=== PATIENT | male | born 1970 | race African-American/Black ===

== ENCOUNTER 2017-11-10 16:34 | Inpatient (IN) | payer OTHER ==
[2017-11-10 18:39] VITALS: BMI 34.0
--- NOTE | 2017-11-10 21:22 | HP ---
CIWA Score - CIWA Score Nausea/Vomitin-No Nausea/No Vomiting Muscle Tremors: 4-Moderate,w/Arms Extend Anxiety: 4-Mod. Anxious/Guarded Agitation: 2 Paroxysmal Sweats: 4-Forehead w/Sweat Beads Orientation: 0-Oriented Tacttile Disturbances: 0-None Auditory Disturbances: 0-None Visual Disturbances: 1-Very Mild Sensitivity Headache: 0-None Present CIWA-Ar Total Score: 15 Admission ROS BHS - HPI Chief Complaint: " I need help" alcohol withdrawal symptoms Allergies/Adverse Reactions: Allergies Allergy/AdvReac Type Severity Reaction Status Date / Time No Known Allergies Allergy Verified 11/10/17 21:32 History of Present Illness: 47 yo male with of alcohol dependence is here seeking detox. Reports was seen at [facility] emergency department one week ago for anxiety attack. PMHX: GERD, chronic back pain, Prosthesis left eye, HTN, depression, schizophrenia. Denies suicidal / homicidal ideation. Denies hx of suicide attempts. Denies hx seizure or blackouts. Reports longest period of 90 days. Last detox [facility] 2016. Exam Limitations: No Limitations - Ebola screening Have you been sick,other than usual withdrawal symptoms: No - Review of Systems Constitutional: Chills, Changes in sleep EENT: reports: Other (wears glasses) Respiratory: reports: No Symptoms reported Cardiac: reports: No Symptoms Reported GI: reports: Indigestion : reports: No Symptoms Reported Musculoskeletal: reports: Back Pain (chronic back pain from sx 2013) Integumentary: reports: No Symptoms Reported Neuro: reports: Unsteady Gait (uses cane) Endocrine: reports: Increased Thirst Hematology: reports: No Symptoms Reported Psychiatric: reports: Orientated x3, Anxious Other Systems: Reviewed and Negative Patient History - Patient Medical History Hx Anemia: No Hx Asthma: No Hx Chronic Obstructive Pulmonary Disease (COPD): No Hx Cancer: No Hx Cardiac Disorders: No Hx Congestive Heart Failure: No Hx Hypertension: Yes (on meds) Hx Hypercholesterolemia: No Hx Pacemaker: No HX Cerebrovascular Accident: No Hx Seizures: No Hx Dementia: No Hx Diabetes: No Hx Gastrointestinal Disorders: Yes Hx Liver Disease: No Hx Genitourinary Disorders: No Hx Sexually Transmitted Disorders: No Hx Renal Disease (ESRD): No Hx Thyroid Disease: No Hx Human Immunodeficiency Virus (HIV): No (last tested Mar 2017) Hx Hepatitis C: No Hx Depression: Yes Hx Suicide Attempt: No Hx Bipolar Disorder: No Hx Schizophrenia: Yes - Patient Surgical History Past Surgical History: Yes Hx Neurologic Surgery: No Hx Cataract Extraction: No Hx Cardiac Surgery: No Hx Lung Surgery: No Hx Breast Surgery: No Hx Breast Biopsy: No Hx Abdominal Surgery: No Hx Appendectomy: No Hx Cholecystectomy: No Hx Section: No Hx Orthopedic Surgery: Yes (back 2013) Hx Hysterectomy: No Anesthesia Reaction: No - PPD History Previous Implant?: No Documented Results: Negative w/o proof Implanted On Prior R Admission?: No PPD to be Administered?: Yes - Smoking Cessation Smoking history: Never smoked Hx Chewing Tobacco Use: No Initiated information on smoking cessation: No - Substance & Tx. History Hx Alcohol Use: Yes Hx Substance Use: Yes Substance Use Type: Alcohol Hx Substance Use Treatment: Yes (Last detox 2016.) - Substances Abused Alcohol Route: Oral Frequency: Daily Amount used: 1 pint vodka + 1 x 40z beer Age of first use: 22 Date of Last Use: 11/10/17 Family Disease History - Family Disease History Family History: Denies Admission Physical Exam [facility] - Vital Signs Vital Signs: Vital Signs - 24 hr 11/10/17 18:26 Temperature 97.4 F L Pulse Rate 86 Respiratory 20 Rate Blood Pressure 157/92 - Physical General Appearance: Yes: Mild Distress, Alcohol on Breath, Obese, Tremorous ( left hand), Sweating, Anxious HEENTM: Yes: Hearing grossly Normal, Normocephalic, Normal Voice, [place], Pharynx Normal, Tm's normal, Other (+ left eye prosthesis) Respiratory: Yes: Chest Non-Tender, Lungs Clear, Normal Breath Sounds, No Respiratory Distress, No Accessory Muscle Use Neck: Yes: Within Normal Limits Breast: Yes: Breast Exam Deferred Cardiology: Yes: Regular Rhythm, Regular Rate Abdominal: Yes: Normal Bowel Sounds, Non Tender, Soft, Protuberent Genitourinary: Yes: Within Normal Limits Back: Yes: Normal Inspection Musculoskeletal: Yes: full range of Motion, Gait Steady, Back pain, Other (cane for ambulation) Extremities: Yes: Normal Capillary Refill, Normal Inspection, Normal Range of Motion, Non-Tender Neurological: Yes: asset protection agent II-XII NML intact, Fully Oriented, Alert, Motor Strength 5/5, Other (flat affect) Integumentary: Yes: Normal Color, Warm, Diaphoresis Lymphatic: Yes: Within Normal Limits - Diagnostic (1) Hypertension Current Visit: Yes Status: Chronic Qualifiers: Hypertension type: essential hypertension Qualified Code(s): I10 - Essential (primary) hypertension (2) Alcohol dependence with withdrawal Current Visit: Yes Status: Acute Qualifiers: Complication of substance-induced condition: uncomplicated Qualified Code(s ): F10.230 - Alcohol dependence with withdrawal, uncomplicated (3) Use of cane as ambulatory aid Current Visit: Yes Status: Acute (4) Psychiatric disorder Current Visit: Yes Status: Suspected (5) Obese Current Visit: Yes Status: Chronic Qualifiers: Obesity type: unspecified obesity type Obesity classification: adult class 1 (BMI 30 - 34.9) Body mass index: BMI 34.0-34.9 (6) GERD (gastroesophageal reflux disease) Current Visit: Yes Status: Chronic Qualifiers: Esophagitis presence: without esophagitis Qualified Code(s): K21.9 - Gastro -esophageal reflux disease without esophagitis Cleared for Admission BHS - Detox or Rehab [facility] Level of Care: Medically Managed Detox Regimen/Protocol: Librium [facility] Breath Alcohol Content Breath Alcohol Content: 0.092 Urine Drug Screen - Results Drug Screen Negative: No Urine Drug Screen Results: BZO-Benzodiazepines, TCA-Tricyclic Antidepress
[2017-11-10] MEDS ORDERED: MENTHOL/PHENOL 1 EACH UD MM PRN (21:35)
[2017-11-10] MEDS ORDERED: chlordiazePOXIDE HCL 25 MG CAPSULE PO ONE (21:35)
[2017-11-10] MEDS ORDERED: guaiFENesin/D-METHORPHAN HB 10 ML UNIT-DOSE CUPS PO PRN (21:35)
[2017-11-10] MEDS ORDERED: P-EPHED 60MG/TRIPROLIDI 2.5MG TABLET PO PRN (21:35)
[2017-11-10] MEDS ORDERED: MAG HYDROX/AL HYDROX/SIMETH 30 ML UNIT-DOSE CUP PO PRN (21:35)
[2017-11-10] MEDS ORDERED: MAGNESIUM HYDROX 2400MG/30ML ORAL SUSPENSION 30 ML CUP PO PRN (21:35)
[2017-11-10] MEDS ORDERED: chlordiazePOXIDE HCL 25 MG CAPSULE PO PRN (21:35)
[2017-11-10] MEDS ORDERED: IBUPROFEN 400 MG TABLET (FP) PO PRN (21:35)
[2017-11-10] MEDS ORDERED: LOPERAMIDE HCL 2 MG CAPSULE PO PRN (21:35)
[2017-11-10] MEDS ORDERED: ACETAMINOPHEN 325 MG TABLET (FP) PO PRN (21:35)
[2017-11-10] MEDS ORDERED: MAGNESIUM CITRATE 300 ML BOTTLE PO PRN (21:35)
[2017-11-10] MEDS ORDERED: MELATONIN 5 MG TABLETS PO PRN (22:00)
[2017-11-10] MEDS: chlordiazePOXIDE HCL 25 MG CAPSULE PO SCH (23:09)
[2017-11-10] MEDS: THIAMINE HCL 100 MG TABLET (FP) PO SCH (23:10)
[2017-11-11] MEDS: chlordiazePOXIDE HCL 25 MG CAPSULE PO SCH ×4 (05:28→22:18)
[2017-11-11] MEDS: PRENATAL VITAMINS W/ FOLIC ACID TABLET (FP) PO SCH (10:36)
[2017-11-11] MEDS: HYDROCHLOROTHIAZIDE 25 MG TABLET (FP) PO SCH (10:36)
[2017-11-11 10:37] LABS: HEMATOCRIT 41.5 % (35.4-49); HEMOGLOBIN 14.3 GM/dL (11.7-16.9); MCH 31.4 pg (25.7-33.7); MCHC 34.5 g/dl (32.0-35.9); MEAN CELL VOLUME 91.1 fl (80-96); MEAN PLT VOLUME 7.9 fl (7.5-11.1); PLATELET COUNT 231 K/MM3 (134-434); RBC 4.55 M/mm3 (4.00-5.60); RDW 14.1 % (11.9-15.9); WHITE BLOOD COUNT 5.6 K/mm3 (4.0-10.0)
[2017-11-11 10:44] LABS: ALBUMIN 3.6 g/dl (3.4-5.0); CHLORIDE 104 mmol/L (98-107); POTASSIUM 4.2 mmol/L (3.5-5.1); SODIUM 142 mmol/L (136-145)
[2017-11-11 10:49] LABS: ALK PHOS 87 U/L (45-117); ANION GAP 8 (8-16); BILIRUBIN,TOTAL 0.3 mg/dL (0.2-1.0); BLOOD UREA NITROGEN 15 mg/dL (7-18); CO2 30 mmol/L (21-32); CREATININE 1.1 mg/dL (0.7-1.3); GLUCOSE,RANDOM 88 mg/dL (74-106); SGOT/AST 25 U/L (15-37); SGPT/ALT 34 U/L (12-78); TOT PROT 6.7 g/dl (6.4-8.2)
--- NOTE | 2017-11-11 11:30 | PN ---
S CIWA - CIWA Score Nausea/Vomitin-No Nausea/No Vomiting Muscle Tremors: 4-Moderate,w/Arms Extend Anxiety: 5 Agitation: 4-Moderately Restless Paroxysmal Sweats: 1-Minimal Palms Moist Orientation: 0-Oriented Tacttile Disturbances: 0-None Auditory Disturbances: 0-None Visual Disturbances: 0-None Headache: 0-None Present CIWA-Ar Total Score: 14 BHS Progress Note (SOAP) Subjective: C/O TREMORS, ANXIETY,SWEATS,FATIGUE. Objective: 11/11/17 11:29 Vital Signs 11/11/17 11/11/17 11/11/17 03:30 06:21 06:30 Temperature 98.3 F Pulse Rate 79 Respiratory 18 18 18 Rate Blood Pressure 120/81 11/11/17 09:26 Temperature 96.8 F L Pulse Rate 86 Respiratory 18 Rate Blood Pressure 134/79 Laboratory Tests 11/11/17 11/11/17 07:30 07:30 WBC 5.6 RBC 4.55 Hgb 14.3 Hct 41.5 MCV 91.1 MCH 31.4 MCHC 34.5 RDW 14.1 Plt Count 231 MPV 7.9 Sodium 142 Potassium 4.2 Chloride 104 Carbon Dioxide 30 Anion Gap 8 BUN 15 Creatinine 1.1 Creat Clearance w eGFR > 60 Random Glucose 88 Calcium 9.0 Total Bilirubin 0.3 AST 25 ALT 34 Alkaline Phosphatase 87 Total Protein 6.7 Albumin 3.6 OTHER LABS PENDING Assessment: 11/11/17 11:29 WITHDRAWAL SX Plan: CONTINUE DETOX
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
--- NOTE | 2017-11-11 15:30 | EKG ---
Test Reason : Blood Pressure : / mmHG Vent. Rate : 080 BPM Atrial Rate : 080 BPM P-R Int : 150 ms QRS Dur : 084 ms QT Int : 404 ms P-R-T Axes : 050 016 024 degrees QTc Int : 465 ms NORMAL SINUS RHYTHM POSSIBLE LEFT ATRIAL ENLARGEMENT BORDERLINE ECG NO PREVIOUS ECGS AVAILABLE Confirmed by Sven Gallagher MD ([id number]) on 11/11/2017 3:30:01 PM Referred By: Gris Varela Confirmed By:Sven Gallagher MD
[2017-11-11] MEDS: FLUoxetine HCL 20 MG CAPSULE (FP) PO SCH (15:38)
[2017-11-11] MEDS: THIAMINE HCL 100 MG TABLET (FP) PO SCH (22:18)
[2017-11-12] MEDS: chlordiazePOXIDE HCL 25 MG CAPSULE PO SCH ×3 (05:17→17:50)
[2017-11-12] MEDS: FLUoxetine HCL 20 MG CAPSULE (FP) PO SCH (10:23)
[2017-11-12] MEDS: PRENATAL VITAMINS W/ FOLIC ACID TABLET (FP) PO SCH (10:23)
[2017-11-12] MEDS: HYDROCHLOROTHIAZIDE 25 MG TABLET (FP) PO SCH (10:24)
--- NOTE | 2017-11-12 10:31 | PN ---
S CIWA - CIWA Score Nausea/Vomitin-No Nausea/No Vomiting Muscle Tremors: 4-Moderate,w/Arms Extend Anxiety: 4-Mod. Anxious/Guarded Agitation: 3 Paroxysmal Sweats: 1-Minimal Palms Moist Orientation: 0-Oriented Tacttile Disturbances: 0-None Auditory Disturbances: 0-None Visual Disturbances: 0-None Headache: 0-None Present CIWA-Ar Total Score: 12 BHS Progress Note (SOAP) Subjective: ANXIETY,CHILLS,TREMORS,FATIGUE. Objective: 11/12/17 10:32 Vital Signs 11/12/17 11/12/17 11/12/17 03:30 05:56 06:30 Temperature 97.3 F L Pulse Rate 63 Respiratory 18 18 18 Rate Blood Pressure 113/74 Laboratory Tests 11/11/17 11/11/17 11/11/17 07:30 07:30 07:30 WBC 5.6 RBC 4.55 Hgb 14.3 Hct 41.5 MCV 91.1 MCH 31.4 MCHC 34.5 RDW 14.1 Plt Count 231 MPV 7.9 Sodium 142 Potassium 4.2 Chloride 104 Carbon Dioxide 30 Anion Gap 8 BUN 15 Creatinine 1.1 Creat Clearance w eGFR > 60 Random Glucose 88 Calcium 9.0 Total Bilirubin 0.3 AST 25 ALT 34 Alkaline Phosphatase 87 Total Protein 6.7 Albumin 3.6 RPR Titer Nonreactive LABS WNL UA PENDING Assessment: 11/12/17 10:32 WITHDRAWAL SX Plan: CONTINUE DETOX
[2017-11-12] MEDS: chlordiazePOXIDE 5 MG CAPSULE PO SCH (22:15)
[2017-11-12] MEDS: THIAMINE HCL 100 MG TABLET (FP) PO SCH (22:15)
[2017-11-13] MEDS: chlordiazePOXIDE 5 MG CAPSULE PO SCH ×3 (05:26→16:52)
[2017-11-13] MEDS: PRENATAL VITAMINS W/ FOLIC ACID TABLET (FP) PO SCH (10:59)
[2017-11-13] MEDS: FLUoxetine HCL 20 MG CAPSULE (FP) PO SCH (10:59)
[2017-11-13] MEDS: HYDROCHLOROTHIAZIDE 25 MG TABLET (FP) PO SCH (10:59)
--- NOTE | 2017-11-13 13:13 | PN ---
BHS Progress Note (SOAP) Subjective: PT REPORTS DECREASED W/Sx. SLIGHT FATIGUE. DETOX PROCEEDING WELL. Objective: 11/13/17 13:13 Vital Signs 11/13/17 11/13/17 06:21 11:22 Temperature 97.8 F 97.4 F L Pulse Rate 72 107 H Respiratory 18 18 Rate Blood Pressure 109/77 118/84 Laboratory Tests 11/11/17 11/11/17 11/11/17 07:30 07:30 07:30 WBC 5.6 RBC 4.55 Hgb 14.3 Hct 41.5 MCV 91.1 MCH 31.4 MCHC 34.5 RDW 14.1 Plt Count 231 MPV 7.9 Sodium 142 Potassium 4.2 Chloride 104 Carbon Dioxide 30 Anion Gap 8 BUN 15 Creatinine 1.1 Creat Clearance w eGFR > 60 Random Glucose 88 Calcium 9.0 Total Bilirubin 0.3 AST 25 ALT 34 Alkaline Phosphatase 87 Total Protein 6.7 Albumin 3.6 RPR Titer Nonreactive Assessment: 11/13/17 13:13 WITHDRAWAL SX Plan: CONTINUE DETOX
[2017-11-13] MEDS: chlordiazePOXIDE HCL 10 MG CAPSULE PO SCH (22:13)
[2017-11-13] MEDS: THIAMINE HCL 100 MG TABLET (FP) PO SCH (22:13)
[2017-11-14] MEDS: chlordiazePOXIDE HCL 10 MG CAPSULE PO SCH (05:44)
[2017-11-14 09:19] VITALS: BP 121/88; PULSE 110; TEMP 96.7
--- NOTE | 2017-11-14 12:38 | PN ---
S Progress Note (SOAP) Subjective: DETOX COMPLETED. ALERT O X 3. PT WILL FOLLOW UP WITH PRIMARY CARE WITH ИВАН LEIVA AT [facility] NEEDED. REPORTS HE IS GOING TO [place] [facility] FOR AFTERCARE. Objective: 11/14/17 12:37 Vital Signs 11/14/17 11/14/17 06:24 09:18 Temperature 97.1 F L 96.7 F L Pulse Rate 96 H 110 H Respiratory 18 18 Rate Blood Pressure 110/71 121/88 Laboratory Tests 11/11/17 11/11/17 11/11/17 07:30 07:30 07:30 WBC 5.6 RBC 4.55 Hgb 14.3 Hct 41.5 MCV 91.1 MCH 31.4 MCHC 34.5 RDW 14.1 Plt Count 231 MPV 7.9 Sodium 142 Potassium 4.2 Chloride 104 Carbon Dioxide 30 Anion Gap 8 BUN 15 Creatinine 1.1 Creat Clearance w eGFR > 60 Random Glucose 88 Calcium 9.0 Total Bilirubin 0.3 AST 25 ALT 34 Alkaline Phosphatase 87 Total Protein 6.7 Albumin 3.6 RPR Titer Nonreactive Assessment: 11/14/17 12:38 MEDICALLY STABLE Plan: D/C PT TODAY
--- NOTE | 2017-11-14 12:40 | DS ---
[facility] Detox Discharge Summary Admission Date: 11/10/17 Discharge Date: 11/14/17 - History Present History: Alcohol Dependence Additional Comments: DETOX COMPLETED. FOLLOW UP WITH PMD ИВАН HOWELL AT [facility] NEEDED. Pertinent Past History: PLEASE SEE DX BELOW - Physical Exam Results Vital Signs: Vital Signs Temperature 96.7 F L 11/14/17 09:18 Pulse Rate 110 H 11/14/17 09:18 Respiratory Rate 18 11/14/17 09:18 Blood Pressure 121/88 11/14/17 09:18 O2 Sat by Pulse Oximetry (%) Pertinent Admission Physical Exam Findings: WITHDRAWAL SX Laboratory Tests 11/11/17 11/11/17 11/11/17 07:30 07:30 07:30 WBC 5.6 RBC 4.55 Hgb 14.3 Hct 41.5 MCV 91.1 MCH 31.4 MCHC 34.5 RDW 14.1 Plt Count 231 MPV 7.9 Sodium 142 Potassium 4.2 Chloride 104 Carbon Dioxide 30 Anion Gap 8 BUN 15 Creatinine 1.1 Creat Clearance w eGFR > 60 Random Glucose 88 Calcium 9.0 Total Bilirubin 0.3 AST 25 ALT 34 Alkaline Phosphatase 87 Total Protein 6.7 Albumin 3.6 RPR Titer Nonreactive - Treatment Hospital Course: Detox Protocol Followed, Detoxed Safely, Responded well, Discharged Condition Good - Medication Discharge Medications: Ambulatory Orders Fluoxetine HCl [Prozac -] 60 mg PO DAILY 11/10/17 Fluphenazine HCl [Prolixin -] 5 mg PO Q8H 11/10/17 Hydrochlorothiazide 25 mg PO DAILY 11/10/17 - Diagnosis (1) Alcohol dependence with withdrawal Status: Acute Qualifiers: Complication of substance-induced condition: uncomplicated Qualified Code(s ): F10.230 - Alcohol dependence with withdrawal, uncomplicated (2) Use of cane as ambulatory aid Status: Chronic (3) GERD (gastroesophageal reflux disease) Status: Chronic Qualifiers: Esophagitis presence: esophagitis presence not specified Qualified Code(s) : K21.9 - Gastro-esophageal reflux disease without esophagitis (4) Hypertension Status: Chronic Qualifiers: Hypertension type: essential hypertension Qualified Code(s): I10 - Essential (primary) hypertension (5) Obese Status: Chronic Qualifiers: Obesity type: unspecified obesity type Obesity classification: adult class 1 (BMI 30 - 34.9) Body mass index: BMI 34.0-34.9 - AMA Did Patient Leave Against Medical Advice: No
== END 2017-11-14 09:50 | disposition home or self-care (01) | DRG 775 ==
LOC: YASAS 16:34 → Y3N 22:23
PROVIDERS: ADMIT Surgery; ATTEND Surgery
PROC: HZ2ZZZZ Detoxification Services for Substance Abuse Treatment (ICD-10-PCS; principal; 2017-11-10)
DX: F10.230 Alcohol dependence with withdrawal, uncomplicated (principal); F20.0 Paranoid schizophrenia; I10 Essential (primary) hypertension; K21.9 Gastro-esophageal reflux disease without esophagitis; E66.9 Obesity, unspecified; Z68.34 Body mass index [BMI] 34.0-34.9, adult; R26.2 Difficulty in walking, not elsewhere classified; Z99.89 Dependence on other enabling machines and devices
CPT/HCPCS: 36415; 80053; 85027; 86593; 93005; 93010